=== PATIENT | female | born 1950 | race Caucasian/White ===

== ENCOUNTER 2019-01-19 12:38 | Emergency (ER) | payer MEDICARE, OTHER ==
[2019-01-19 12:56] VITALS: RESP 18
[2019-01-19] MEDS ORDERED: KETOROLAC 30 MG/ML 1 ML VIAL IVP STA (13:44)
--- NOTE | 2019-01-19 14:15 | ED ---
Extremity Problem HPI - General Chief complaint: Extremity Problem,Nontraumatic Stated complaint: Leg pain Time Seen by Provider: 01/19/19 13:24 Source: patient, RN notes reviewed Mode of arrival: wheelchair Limitations: no limitations - History of Present Illness Initial comments: This is a 68-year-old female presents emergency Department with chief complaint of right leg pain. Patient states his started on Tuesday has progressively worsened. Patient states that she flew up from [place] on Tuesday. Patient states that she does have leg swelling but states her legs are chronically swollen. Patient has no history of PE or DVT. Patient states pain radiates from her buttocks down to her leg. She is concerned about possible DVT. Patient states that she has no chest pain or shortness breath no headache or dizziness. She did state that she had some fluttering in her chest though she states this is related to her anxiety. She has no current symptoms. Patient denies any abdominal pain nausea vomiting diarrhea constipation denies any fevers or chills no URI symptoms. - Related Data Home Medications Medication Instructions Recorded Confirmed Acetaminophen Tab [Tylenol Tab] 1,000 mg PO Q6HR PRN 01/19/19 01/19/19 Atorvastatin [Lipitor] 10 mg PO HS 01/19/19 01/19/19 Carvedilol [Coreg] 3.125 mg PO BID 01/19/19 01/19/19 Clopidogrel [Plavix] 75 mg PO DAILY 01/19/19 01/19/19 Ibuprofen [Motrin Ib] 200 mg PO Q8H PRN 01/19/19 01/19/19 Lisinopril-Hctz 20-25 mg 1 tab PO DAILY 01/19/19 01/19/19 [Zestoretic 20-25] Nitroglycerin Sl Tabs [Nitrostat] 0.4 mg SUBLINGUAL Q5M PRN 01/19/19 01/19/19 Oxybutynin ER [Ditropan Xl] 10 mg PO BID 01/19/19 01/19/19 PARoxetine HCL [Paxil] 40 mg PO DAILY 01/19/19 01/19/19 Pantoprazole Sodium [Protonix] 40 mg PO BID 01/19/19 01/19/19 amLODIPine [Norvasc] 10 mg PO DAILY 01/19/19 01/19/19 metFORMIN HCL [Glucophage] 1,000 mg PO BID 01/19/19 01/19/19 rOPINIRole HCL [Requip] 0.25 mg PO DAILY 01/19/19 01/19/19 rOPINIRole HCL [Requip] 0.25 mg PO DAILY@1200 PRN 01/19/19 01/19/19 rOPINIRole HCL [Requip] 1 mg PO HS 01/19/19 01/19/19 Allergies Allergy/AdvReac Type Severity Reaction Status Date / Time Penicillins Allergy Anaphylaxis Verified 01/19/19 13:57 Review of Systems ROS Statement: Those systems with pertinent positive or pertinent negative responses have been documented in the HPI. ROS Other: All systems not noted in ROS Statement are negative. Past Medical History Past Medical History: Cancer, Diabetes Mellitus, Hypertension Additional Past Medical History / Comment(s): melanoma History of Any Multi-Drug Resistant Organisms: None Reported Past Surgical History: Section, Cholecystectomy, Hysterectomy, Pacemaker Additional Past Surgical History / Comment(s): restless leg syndrome Past Psychological History: Depression Smoking Status: Never smoker Past Alcohol Use History: None Reported Past Drug Use History: None Reported General Exam Limitations: no limitations General appearance: alert, in no apparent distress Head exam: Present: atraumatic, normocephalic, normal inspection Eye exam: Present: normal appearance, PERRL, EOMI. Absent: scleral icterus, conjunctival injection, periorbital swelling Neck exam: Present: normal inspection. Absent: tenderness, meningismus, lymphadenopathy Respiratory exam: Present: normal lung sounds bilaterally. Absent: respiratory distress, wheezes, rales, rhonchi, stridor Cardiovascular Exam: Present: regular rate, normal rhythm, normal heart sounds. Absent: systolic murmur, diastolic murmur, rubs, gallop, clicks GI/Abdominal exam: Present: soft, normal bowel sounds. Absent: distended, tenderness, guarding, rebound, rigid Extremities exam: Present: other (Tenderness the right leg calf, popliteal region, neurovascular intact there is moderate swelling noted no erythema or shoulder lower extremities) Back exam: Present: full ROM, tenderness (Mild right lower lumbar). Absent: vertebral tenderness Neurological exam: Present: alert, oriented X3 Skin exam: Present: warm, dry, intact, normal color. Absent: rash Course Vital Signs 01/19/19 12:52 Temperature 98.7 F Pulse Rate 101 H Respiratory 18 Rate Blood Pressure 127/65 O2 Sat by Pulse 97 Oximetry Medical Decision Making - Medical Decision Making 68-year-old female presented for right leg pain. Patient concerns for possible DVT. Also was obtained no acute DVT. Patient symptoms are consistent with sciatica. Pedal pulses are equal bilaterally patient will be discharged with pain medication and close follow-up return parameters were discussed. - Lab Data Result diagrams: 01/19/19 14:26 01/19/19 14:26 Lab Results 01/19/19 01/19/19 01/19/19 Range/Units 14:26 14:26 14:26 WBC 11.1 H (3.8-10.6) k/uL RBC 4.46 (3.80-5.40) m/uL Hgb 12.1 (11.4-16.0) gm/dL Hct 37.4 (34.0-46.0) % MCV 83.8 (80.0-100.0) fL MCH 27.2 (25.0-35.0) pg MCHC 32.5 (31.0-37.0) g/dL RDW 15.9 H (11.5-15.5) % Plt Count 291 (150-450) k/uL Neutrophils % 75 % Lymphocytes % 17 % Monocytes % 5 % Eosinophils % 1 % Basophils % 0 % Neutrophils # 8.3 H (1.3-7.7) k/uL Lymphocytes # 1.9 (1.0-4.8) k/uL Monocytes # 0.6 (0-1.0) k/uL Eosinophils # 0.2 (0-0.7) k/uL Basophils # 0.0 (0-0.2) k/uL Sodium 142 (137-145) mmol/L Potassium 3.4 L (3.5-5.1) mmol/L Chloride 103 (98-107) mmol/L Carbon Dioxide 28 (22-30) mmol/L Anion Gap 11 mmol/L BUN 21 H (7-17) mg/dL Creatinine 0.89 (0.52-1.04) mg/dL Est GFR (CKD-EPI)AfAm 76 (>60 ml/min/1.73 sqM) Est GFR (CKD-EPI)NonAf 66 (>60 ml/min/1.73 sqM) Glucose 99 (74-99) mg/dL Calcium 9.1 (8.4-10.2) mg/dL Magnesium 1.2 L (1.6-2.3) mg/dL Total Bilirubin 0.7 (0.2-1.3) mg/dL AST 23 (14-36) U/L ALT 18 (9-52) U/L Alkaline Phosphatase 101 (38-126) U/L Troponin I <0.012 (0.000-0.034) ng/mL Total Protein 6.8 (6.3-8.2) g/dL Albumin 3.8 (3.5-5.0) g/dL Disposition Clinical Impression: Sciatica Disposition: HOME SELF-CARE Condition: Stable Instructions (If sedation given, give patient instructions): Sciatica (ED) Additional Instructions: Please return to the Emergency Department if symptoms worsen or any other concerns. Is patient prescribed a controlled substance at d/c from ED?: No Referrals: Nonstaff,Physician [Primary Care Provider] - 1-2 days Time of Disposition: 15:47
[2019-01-19 14:52] LABS: Basophils % (A) 0 %; Eosinophils # (A) 0.2 k/uL (0-0.7); Eosinophils % (A) 1 %; HCT 37.4 % (34.0-46.0); HGB 12.1 gm/dL (11.4-16.0); Lymphocytes # (A) 1.9 k/uL (1.0-4.8); Lymphocytes % (A) 17 %; MCH 27.2 pg (25.0-35.0); MCHC 32.5 g/dL (31.0-37.0); MCV 83.8 fL (80.0-100.0); Mean Platelet Volume 6.4; Monocytes # (A) 0.6 k/uL (0-1.0); Monocytes % (A) 5 %; Neutrophils # (A) 8.3 k/uL (1.3-7.7); Neutrophils % (A) 75 %; Platelet Count 291 k/uL (150-450); RBC 4.46 m/uL (3.80-5.40); RDW 15.9 % (11.5-15.5); WBC 11.1 k/uL (3.8-10.6)
[2019-01-19 15:00] LABS: Albumin 3.8 g/dL (3.5-5.0); Calcium 9.1 mg/dL (8.4-10.2); Magnesium 1.2 mg/dL (1.6-2.3); Potassium 3.4 mmol/L (3.5-5.1); Total Bilirubin 0.7 mg/dL (0.2-1.3); Total Protein 6.8 g/dL (6.3-8.2)
--- NOTE | 2019-01-19 15:29 | US ---
EXAMINATION TYPE: US venous doppler duplex LE RT DATE OF EXAM: 01/19/2019 3:21 PM COMPARISON: NONE CLINICAL HISTORY: pain. Pain right leg SIDE PERFORMED: right TECHNIQUE: The lower extremity deep venous system is examined utilizing real time linear array sonog yasmani with graded compression, doppler sonography and color-flow sonography. VESSELS IMAGED: External Iliac Vein (EIV) Common Femoral Vein Deep Femoral Vein Greater Saphenous Vein * Femoral Vein Popliteal Vein Small Saphenous Vein * Proximal Calf Veins (* superficial vessels) Right Leg: No evidence of DVT as visualized. Technical limitations due to patient's body habitus IMPRESSION: 1. No ultrasound evidence of deep venous thrombosis.
[2019-01-19] MEDS ORDERED: ACET/COD 300 MG/30 MG STARTER PACK 6 TAB BTL PO STA (15:49)
[2019-01-19 16:24] VITALS: BP 122/81; PULSE 87; TEMP 98
== END 2019-01-19 16:27 | disposition home or self-care (01) ==
LOC: EC 12:38
DX: M54.31 Sciatica, right side (principal); E11.9 Type 2 diabetes mellitus without complications; I10 Essential (primary) hypertension; F32.9 Major depressive disorder, single episode, unspecified; Z79.02 Long term (current) use of antithrombotics/antiplatelets; Z79.899 Other long term (current) drug therapy; Z79.84 Long term (current) use of oral hypoglycemic drugs; Z88.0 Allergy status to penicillin; Z85.820 Personal history of malignant melanoma of skin; Z95.0 Presence of cardiac pacemaker
CPT/HCPCS: 36415; 93005; 80053; 83735; 84484; 85025; 93971; 99284; 96374; J1885